=== PATIENT | female | born 1995 | race Caucasian/White ===

== ENCOUNTER 2018-09-02 21:33 | Emergency (ER) | payer OTHER ==
--- NOTE | 2018-09-02 21:41 | PDOC ---
Rapid Medical Evaluation Time Seen by Provider: 09/02/18 21:40 Medical Evaluation: 09/02/18 21:40 I performed a brief in-person evaluation of this patient. Chief complaint: Nausea, diarrhea, fever today Pertinent physical exam findings: I have ordered the following: Patient will proceed to the ED for further evaluation.
[2018-09-02 21:42] VITALS: BMI 19.5
[2018-09-02 22:04] LABS: URINE APPEARANCE CLEAR; URINE BILIRUBIN NEGATIVE (<2.0 mg/dL); URINE COLOR STRAW; URINE GLUCOSE (UA) NEGATIVE (NEGATIVE); URINE KETONE 1+ (NEGATIVE); URINE LEUK ESTERASE NEGATIVE (NEGATIVE); URINE NITRITE NEGATIVE (NEGATIVE); URINE PROTEIN NEGATIVE (NEGATIVE); URINE UROBILINOGEN NEGATIVE mg/dL (0.2-1.0)
[2018-09-02 22:06] LABS: HCG,QUALITATIVE URINE Negative
[2018-09-02 22:20] LABS: EPI CELLS FEW /HPF (FEW)
[2018-09-02] MEDS ORDERED: SODIUM CHLORIDE 1,000 ML IV STA (22:25)
[2018-09-02] MEDS ORDERED: ACETAMINOPHEN 1000 MG/100 ML VIAL (NON FORMULARY) IVPB ONE (22:25)
--- NOTE | 2018-09-02 22:34 | PDOC ---
History of Present Illness - General Chief Complaint: Nausea/Vomiting Stated Complaint: FEVER VOMITING Time Seen by Provider: 09/02/18 21:40 History Source: Patient Exam Limitations: No Limitations - History of Present Illness Travel History: No Initial Comments: 09/02/18 22:26 HISTORY OF PRESENT ILLNESS: This is a 22-year-old female denies medical history presents emergency department for evaluation of abdominal cramping, nausea, vomiting and diarrhea throughout the day today. Patient reports she's been unable to tolerate any solid foods but has had liquids and soup throughout the day today without difficulty. Patient reports her vomitus is nonbilious nonbloody undigested food. Patient reports she had loose brown stools today which have started to firm up. Patient denies any rectal bleeding, hematuria, dysuria. Patient states she ate questionably cooked chicken yesterday for dinner. No recent travel or sick contacts. PAST MEDICAL HISTORY: Denies past medical history SURGICAL HISTORY: Denies ALLERGIES: No known drug allergies REVIEW OF SYSTEMS General/Constitutional: Denies fever or chills. Denies weakness, weight change. HEENT: Denies change in vision. Denies ear pain or discharge. Denies sore throat. Cardiovascular: Denies chest pain or shortness of breath. Respiratory: Denies cough, wheezing, or hemoptysis. Gastrointestinal: See HPI Genitourinary: Denies dysuria, frequency, or change in urination. Musculoskeletal: Denies joint or muscle swelling or pain. Denies neck or back pain. Skin and breasts: Denies rash or easy bruising. Neurologic: Denies headache, vertigo, loss of consciousness, or loss of sensation. Psychiatric: Denies depression or anxiety. Endocrine: Denies increased thirst. Denies abnormal weight change. Hematologic/Lymphatic: Denies anemia, easy bleeding, or history of blood clots. Allergic/Immunologic: Denies hives or skin allergy. Denies latex allergy. PHYSICAL EXAM General Appearance: Well-appearing, appropriately dressed. No apparent distress , no intoxication. HEENT: EOMI, PERRLA, normal ENT inspection, normal voice, TMs normal, pharynx normal. No conjunctival pallor. No photophobia, scleral icterus. Neck: Supple. Trachea midline. No tenderness, rigidity, carotid bruit, stridor , lymphadenopathy, or thyromegaly. Respiratory/Chest: Lungs CTAB. No shortness of breath, chest tenderness, respiratory distress, accessory muscle use. No crackles, rales, rhonchi, stridor , wheezing, dullness Cardiovascular: RRR. S1, S2. No JVD, murmur, bradycardia, tachycardia. Gastrointestinal/Abdominal: Normal bowel sounds. Abdomen soft, non-distended. No tenderness or rebound tenderness. No organomegaly, pulsatile mass, guarding, hernia, hepatomegaly, splenomegaly. Musculoskeletal/Extremities: Normal inspection. FROM of all extremities, normal capillary refill. Pelvis Stable. No CVA tenderness. No tenderness to extremities, pedal edema, swelling, erythema or deformity. Integumentary: Appropriate color, dry, warm. No cyanosis, erythema, jaundice or rash Neurologic: echocardiograph technician II-XII intact. Fully oriented, alert. Appropriate mood/affect. Motor strength 5/5. No appreciable EOM palsy, facial droop or sensory deficit. Past History - Past Medical History Allergies/Adverse Reactions: Allergies Allergy/AdvReac Type Severity Reaction Status Date / Time No Known Allergies Allergy Verified 09/02/18 21:42 Home Medications: Ambulatory Orders Ondansetron [Zofran Odt -] 4 mg SL TID #21 od.tablet 09/03/18 COPD: No - Suicide/Smoking/Psychosocial Hx Smoking History: Never smoked Have you smoked in the past 12 months: No Information on smoking cessation initiated: No Hx Alcohol Use: No Drug/Substance Use Hx: No *Physical Exam - Vital Signs Last Vital Signs Temp Pulse Resp BP Pulse Ox 100.2 F H 125 H 16 135/64 100 09/02/18 21:33 09/02/18 21:33 09/02/18 21:33 09/02/18 21:33 09/02/18 21:33 Moderate Sedation - Procedure Monitoring Vital Signs: Procedure Monitoring Vital Signs Temperature 100.2 F H 09/02/18 21:33 Pulse Rate 125 H 09/02/18 21:33 Respiratory Rate 16 09/02/18 21:33 Blood Pressure 135/64 09/02/18 21:33 O2 Sat by Pulse Oximetry (%) 100 09/02/18 21:33 ED Treatment Course - LABORATORY CBC & Chemistry Diagram: 09/02/18 22:58 09/02/18 22:58 - ADDITIONAL ORDERS Additional order review: Laboratory Results 09/02/18 21:54 Urine Color Straw Urine Appearance Clear Urine pH 6.0 Ur Specific [place] 1.005 L Urine Protein Negative Urine Glucose (UA) Negative Urine Ketones 1+ H Urine Blood 1+ H Urine Nitrite Negative Urine Bilirubin Negative Urine Urobilinogen Negative Ur Leukocyte Esterase Negative Urine WBC (Auto) 1 Urine RBC (Auto) 3 Ur Epithelial Cells Few Urine HCG, Qual Negative Medical Decision Making - Medical Decision Making 09/02/18 22:34 A/P: 22-year-old female with abdominal cramping, nausea, vomiting, diarrhea for 1 day Normoactive bowel sounds Abdomen soft nontender nondistended No palpable masses present Influ[facility] testing [facility]. Urinalysis is not suggestive of urinary tract infection. Labs, IV fluids, Tylenol, reassess 09/03/18 00:26 Laboratory testing reveals normal white count with 80% neutrophils. Likely from viral gastroenteritis. Patient is free of symptoms and denies pain. She is tolerating oral liquids without difficulty. I will discharge the patient home with a prescription for Zofran to follow-up with her primary doctor as needed. I discussed the physical exam findings, ancillary test results and final diagnoses with the patient. I answered all of the patient's questions. The patient was satisfied with the care received and felt comfortable with the discharge plan and treatment plan. The patient will call their primary care physician within 24 hours to arrange follow-up and will return to the Emergency Department with any new, persistent or worsening symptoms. *DC/Admit/Observation/Transfer Diagnosis at time of Disposition: Gastroenteritis - Discharge Dispostion Disposition: HOME Condition at time of disposition: Stable Decision to Admit order: No - Prescriptions Prescriptions: Ondansetron [Zofran Odt -] 4 mg SL TID #21 od.tablet - Referrals - Patient Instructions Additional Instructions: Rest, drink lots of fluids: Teas, water, soups Alee [place], carbonated beverages for the bubbles May try peppermint teas Avoid heavy , spicy or fatty foods until symptoms have resolved Avoid contact with others until fevers and symptoms resolved Lots of handwashing and good hygiene Continue [id number] medications for symptomatic relief Tylenol or Motrin for fever and pain May use Zofran-one tablet dissolved under tongue as needed for nauseousness. May repeat times one every 8 hours Followup with private physician in one to 2 days as needed Return to emergency department for worsened symptoms, fevers, dehydration - Post Discharge Activity
[2018-09-02] MEDS ORDERED: ACETAMINOPHEN INJECTION 100 ML IVPB ONE (23:00)
[2018-09-02 23:11] LABS: BASO % 0.4 % (0-2.0); EOS % 0.1 % (0-4.5); HEMATOCRIT 28.5 % (32.4-45.2); HEMOGLOBIN 9.3 GM/dL (10.7-15.3); LYMPH % 6.8 % (8-40); MCH 23.4 pg (25.7-33.7); MCHC 32.5 g/dl (32.0-36.0); MEAN PLT VOLUME 8.3 fl (7.5-11.1); MONO % 4.4 % (3.8-10.2); NEUT % 88.3 % (42.8-82.8); PLATELET COUNT 266 K/MM3 (134-434); RBC 3.96 M/mm3 (3.60-5.2); RDW 17.4 % (11.6-15.6); WHITE BLOOD COUNT 8.6 K/mm3 (4.0-10.0)
[2018-09-02 23:50] LABS: ALBUMIN 4.2 g/dl (3.4-5.0); ALK PHOS 64 U/L (45-117); ANION GAP 9 MMOL/L (8-16); BILIRUBIN,TOTAL 0.5 mg/dL (0.2-1); BLOOD UREA NITROGEN 9 mg/dL (7-18); CALCIUM 8.7 mg/dL (8.5-10.1); CHLORIDE 108 mmol/L (98-107); CO2 23 mmol/L (21-32); CREATININE 0.6 mg/dL (0.55-1.3); GLUCOSE,RANDOM 96 mg/dL (74-106); LIPASE 144 U/L (73-393); POTASSIUM 4.4 mmol/L (3.5-5.1); SGOT/AST 20 U/L (15-37); SGPT/ALT 20 U/L (13-61); SODIUM 140 mmol/L (136-145); TOT PROT 7.7 g/dl (6.4-8.2)
[2018-09-03 00:40] VITALS: BP 128/76; PULSE 93; TEMP 98.4
== END 2018-09-03 00:40 | disposition home or self-care (01) ==
LOC: JER 21:33
PROC: 3E033NZ Introduction of Analgesics, Hypnotics, Sedatives into Peripheral Vein, Percutaneous Approach (ICD-10-PCS; principal; 2018-09-02)
DX: K52.9 Noninfective gastroenteritis and colitis, unspecified (principal)
CPT/HCPCS: 36415; 80053; 81003; 81015; 83690; 84703; 85025; 87804; 99283-25; J0131; J7030

== ENCOUNTER 2019-01-21 12:55 | Emergency (ER) | payer OTHER | END 2019-01-21 14:10 | disposition home or self-care (01) | LOC: JERFT 12:55 ==

== ENCOUNTER 2019-02-14 12:43 | Emergency (ER) | payer OTHER ==
[2019-02-14 13:04] VITALS: BP 100/60; PULSE 71; TEMP 98; BMI 19.5
--- NOTE | 2019-02-14 13:42 | PDOC ---
History of Present Illness - General Chief Complaint: Pain Stated Complaint: ABD PAIN/ CHILLS/ VOMITING Time Seen by Provider: 02/14/19 13:29 History Source: Patient, Significant Other Exam Limitations: No Limitations - History of Present Illness Travel History: No Initial Comments: 02/14/19 13:45 Patient is here with complaints of lower abdominal pain on and off for the past 3 days. States yesterday progressively worsened. Was on her left side but now is moved to the right side. States has been nauseous, anorexic, no fevers. Has had no diarrhea or problems with urine. No vaginal drainage. Has no history of ovarian cysts or uterine issue, is not constipated, and denies dysuria. States is painful to move Timing/Duration: reports: getting worse Quality: reports: mild, fullness Abdominal Pain Onset Location: reports: RLQ, LLQ, suprapubic Pain Radiation: reports: no radiation Activities at Onset: reports: none Past History - Travel Traveled outside of the country in the last 30 days: No Close contact w/someone who was outside of country & ill: No - Past Medical History Allergies/Adverse Reactions: Allergies Allergy/AdvReac Type Severity Reaction Status Date / Time No Known Allergies Allergy Verified 01/21/19 13:17 Home Medications: Ambulatory Orders Ondansetron [Zofran Odt -] 4 mg SL TID #21 od.tablet 09/03/18 COPD: No - Suicide/Smoking/Psychosocial Hx Smoking History: Never smoked Have you smoked in the past 12 months: No Information on smoking cessation initiated: No Hx Alcohol Use: No Drug/Substance Use Hx: No Review of Systems - Review of Systems Able to Perform ROS?: Yes Is the patient limited Wallisian proficient: Yes Constitutional: Yes: Symptoms Reported, See HPI, Loss of Appetite, Malaise. No : Fever HEENTM: Yes: See HPI. No: Symptoms Reported Respiratory: Yes: See HPI. No: Symptoms reported, Cough ABD/GI: Yes: Symptoms Reported, See HPI, Nausea, Vomiting, Abdominal cramping. No: Constipated, Diarrhea : Yes: See HPI. No: Symptoms Reported, Burning, Dysuria Integumentary: Yes: Symptoms Reported, See HPI Neurological: No: Symptoms reported All Other Systems: Reviewed and Negative *Physical Exam - Vital Signs Last Vital Signs Temp Pulse Resp BP Pulse Ox 98 F 71 20 100/60 100 07/08/19 13:01 02/14/19 13:01 02/14/19 13:01 02/14/19 13:01 02/14/19 13:01 - Physical Exam General Appearance: Yes: Nourished, Appropriately Dressed, Apparent Distress, Mild Distress, Moderate Distress HEENT: positive: ANNETTE, Normal ENT Inspection, TMs Normal, Pharynx Normal Neck: positive: Supple. negative: Tender, Lymphadenopathy (R), Lymphadenopathy (L) Respiratory/Chest: positive: Lungs Clear, Normal Breath Sounds Gastrointestinal/Abdominal: positive: Normal Bowel Sounds, Soft, Guarding (to RLQ), Rebound (patient is unable to jump without tenderness reproduced, hold side when performing this with wincing). negative: Tender, Hepatomegaly, Spleenomegaly Musculoskeletal: positive: Normal Inspection Extremity: positive: Normal Capillary Refill, Normal Inspection, Normal Range of Motion Integumentary: positive: Normal Color, Dry, Warm, Pale Neurologic: positive: oral and maxillofacial surgery resident II-XII NML intact, Fully Oriented, Alert, Normal Mood/ Affect, Normal Response, Motor Strength 12/12 ED Treatment Course - LABORATORY CBC & Chemistry Diagram: 02/14/19 14:02 02/14/19 14:00 Progress Note - Progress Note Progress Note: Lower abdominal pain, possible appendicitis, consistent with clinical history and exam with rebound tenderness and some guarding in her right lower quadrant. , Preliminary labs, and ultrasound will be obtained with reevaluate after Medical Decision Making - Medical Decision Making 02/14/19 17:42 CTSAcan reveals ruptured ovarian cyst left side, with complex fluid noted. Appendix is normal with official reading of CAT scan with contrast. Reviewed CT / US/ Labs findings with patient including chronic anemia. Understands need to follow-up with [facility] this week for reevaluation, to increase fluids, and return as needed for worsened pain, fevers, any other problems. 02/15/19 11:02 *DC/Admit/Observation/Transfer Diagnosis at time of Disposition: Cyst of left ovary - Discharge Dispostion Disposition: HOME Condition at time of disposition: Stable Decision to Admit order: No - Referrals Referrals: Levi Ramires MD [Staff Physician] - - Patient Instructions Printed Discharge Instructions: DI for Ovarian Cyst Additional Instructions: Rest, drink lots of fluids: Teas, water, soups Lots of handwashing and good hygiene Tylenol or Motrin for fever and pain Follow-up with [facility] this week for reevaluation Return to emergency department for worsened symptoms, fevers, dehydration - Post Discharge Activity Forms/Work/School Notes: Back to Work
[2019-02-14 14:35] LABS: URINE APPEARANCE CLEAR; URINE BILIRUBIN NEGATIVE (NEGATIVE); URINE COLOR YELLOW; URINE GLUCOSE (UA) NEGATIVE (NEGATIVE); URINE KETONE NEGATIVE (NEGATIVE); URINE LEUK ESTERASE NEGATIVE (NEGATIVE); URINE NITRITE NEGATIVE (NEGATIVE); URINE PROTEIN TRACE (NEGATIVE); URINE UROBILINOGEN 0.2 mg/dL (0.2-1.0)
[2019-02-14 14:37] LABS: HCG,QUALITATIVE URINE Negative
[2019-02-14 14:49] LABS: BASO % 0.3 % (0-2.0); EOS % 0.6 % (0-4.5); HEMATOCRIT 32.4 % (32.4-45.2); LYMPH % 9.6 % (8-40); MCH 21.9 pg (25.7-33.7); MEAN CELL VOLUME 70.6 fl (80-96); MEAN PLT VOLUME 8.1 fl (7.5-11.1); MONO % 4.7 % (3.8-10.2); NEUT % 84.8 % (42.8-82.8); PLATELET COUNT 339 K/MM3 (134-434); RBC 4.59 M/mm3 (3.60-5.2); RDW 17.4 % (11.6-15.6); WHITE BLOOD COUNT 13.1 K/mm3 (4.0-10.0)
[2019-02-14 15:33] LABS: BLOOD UREA NITROGEN 8.6 mg/dL (7-18); CREATININE 0.5 mg/dL (0.55-1.3)
[2019-02-14 15:34] LABS: ALBUMIN 4.3 g/dl (3.4-5.0); BILIRUBIN,TOTAL 0.3 mg/dL (0.2-1); CALCIUM 8.8 mg/dL (8.5-10.1); TOT PROT 7.7 g/dl (6.4-8.2)
== END 2019-02-14 17:31 | disposition home or self-care (01) ==
LOC: JERFT 12:43
DX: N83.202 Unspecified ovarian cyst, left side (principal)
CPT/HCPCS: 36415; 74177-TC; 76830-TC; 76856-TC; 80053; 81003; 83690; 84703; 85025; 99281-25